=== PATIENT | female | born 1995 | race Caucasian/White ===

== ENCOUNTER → 2022-10-15 08:59 | Outpatient (CLI) | payer OTHER, SELFPAY ==
[2022-10-15 10:16] LABS: Add Manual Diff / Slide Review NO; Basophils Absolute Auto 0 /uL (0-100); Basophils Percent Auto 0.2 % (0-2); Eosinophils Absolute Auto 100 /uL (0-450); Eosinophils Percent Auto 1.4 % (2-4); Hematocrit 36.3 % (36-46); Hemoglobin 12.7 g/dL (12.0-16.0); Lymphocytes Absolute Auto 1200 /uL (1100-4500); Lymphocytes Percent Auto 17.8 % (25-40); Mean Corpuscular HGB Conc 35.1 % (30-36); Mean Corpuscular Hemoglobin 31.5 PG (26-34); Mean Corpuscular Volume 89.9 fL (80-100); Monocytes Absolute Auto 500 /uL (0-900); Monocytes Percent Auto 8.1 % (3-14); Neutrophils Absolute Auto 4700 /uL (1500-7000); Neutrophils Percent Auto 72.5 % (50-75); Platelet Count 239 X10^3/uL (150-400); Red Blood Cell Count 4.04 X10^6/uL (4.0-5.2); Red Cell Distribution Width 13.5 % (11.6-14.8); White Blood Cell Count 6.5 X10^3/uL (4.5-11.0)
[2022-10-15 16:14] LABS: Hepatitis B Surface Antigen NEGATIVE s/c (NEGATIVE); Rubella Antibody IgG 64.3 IU/mL (>15)
[2022-10-15 16:23] LABS: HIV 1 & 2 Ab/Ag 4th Gen Combo NEGATIVE (NEGATIVE); Hep C Virus Ab w/Reflex Quant NEGATIVE s/c (NEGATIVE)
[2022-10-16 06:07] LABS: Labcorp Hemoglobin (Hb) A1c 5.4 % (4.8-5.6)
[2022-10-16 07:57] LABS: RPR Screen Non Reactive (Non Reactive)
[2022-10-16 10:13] LABS: Varicella IgG Antibody 1931 index (Immune >165)
== END ==
PROVIDERS: Specialist; Referring Provider Obstetrics & Gynecology; Visit Provider Obstetrics & Gynecology
DX: Z34.81 Encounter for supervision of other normal pregnancy, first trimester (principal)
CPT/HCPCS: 36415; 80055; 83036; 86787; 86803; 86850; 86900; 86901; 87389

== ENCOUNTER → 2022-12-01 06:48 | Outpatient (CLI) | payer OTHER, SELFPAY ==
--- NOTE | 2022-12-01 06:49 | DI.US.S_ITS ---
PROCEDURE: US OB >= 14 WEEKS FETUS INDICATIONS: ANATOMY OUTSIDE/PRIOR DATING DATA: Last menstrual period (LMP): July 03, 2022. LMP-based estimated date of delivery (CARY): April 17, 2023. First dating scan (date and location): September 16, 2022. Estimated date of delivery (CARY) from first dating scan: April 10, 2023. TECHNIQUE: Real-time scanning was performed of the fetus, with image documentation and biometric measurements. Endovaginal scanning: Not performed COMPARISON: [facility], , OB >= 14 WEEKS FETUS, 11/12/2022, 16:09. FINDINGS: General: A single living intrauterine gestation is present. Presentation: Vertex. Placenta: Placental position is posterior , without previa. Amniotic fluid index: 10.8 cm, normal range is 5-24 cm. Single deepest vertical pocket is 3.3 cm. heart rate: 147 beats per minute. Maternal cervical canal: 3.9 cm long. Normal lower limit is 2.5 cm. biometrics: Biparietal diameter: 5.1 cm, 21 weeks and 2 days Head circumference: 18.9 cm, 21 weeks and 1 day Abdominal circumference: 15.7 cm, 20 weeks and 5 days Femur length: 3.5 cm, 21 weeks and 0 days Clinically estimated gestational age: 21 weeks and 3 days Composite gestational age from present scan: 21 weeks and 0 days Estimated weight and percentile: 385 g, 20th percentile Anatomic survey: Neuro: Ventricles , cisterna magna , and cerebellum are not well visualized secondary to positioning. Nuchal skin fold: Nuchal region not well visualized. Face: Nose and lips, facial profile are normal. Spine: No evidence for spina bifida. Heart: 4-chambered heart is present, with normal ventricular outflow tracts. Diaphragm: Diaphragm is intact. Stomach: Left-sided stomach is present. Kidneys: No hydronephrosis. Normal is less than 5 mm in 2nd trimester, less than 7 mm in 3rd trimester. Cord: 3-vessel cord has orthotopic insertion. Bladder: Normal in size. Extremities: All 4 extremities identified. IMPRESSION: Single living intrauterine gestation with estimated sonographic gestational age of approximately 21 weeks and 0 days which measures concordantly with clinically estimated gestational age of approximately 21 weeks and 3 days. The intracranial structures and nuchal region were not well visualized secondary to lie during this examination. Otherwise, normal anatomy screening survey. Follow-up imaging recommended for the structures not well visualized on today's examination. We strive to produce accurate, complete, and clear reports of imaging services. To assist us in improving patient care, this report was composed using standard report templates and voice recognition software. Therefore, it may contain abnormal punctuation, insertions and/or omissions. Occasional wrong-word or sound-alike substitutions may occur. Though we review the report and make efforts to correct it, we do recommend that the report be read carefully in proper context to recognize any text inaccuracies. Dictated by: Perez Hernandez M.D. on 12/01/2022 at 10:15 Approved by: Perez Hernandez M.D. on 12/01/2022 at 10:21
== END ==
PROVIDERS: Referring Provider Obstetrics & Gynecology; Visit Provider Obstetrics & Gynecology
DX: Z34.82 Encounter for supervision of other normal pregnancy, second trimester (principal); Z3A.21 21 weeks gestation of pregnancy
CPT/HCPCS: 76811

== ENCOUNTER → 2022-12-04 16:22 | Outpatient (CLI) | payer OTHER, SELFPAY ==
--- NOTE | 2022-12-04 16:23 | DI.US.S_ITS ---
PROCEDURE: US OB FOLLOW UP INDICATIONS: FOLLOW UP ANATOMY OUTSIDE/PRIOR DATING DATA: Last menstrual period (LMP): 07/03/2022 LMP-based estimated date of delivery (CARY): 04/17/2023. First dating scan (date and location): 09/16/2022. Estimated date of delivery (CARY) from first dating scan: 04/10/2023 Working CARY is 04/10/2023. TECHNIQUE: Real-time scanning was performed of the fetus, with image documentation and biometric measurements. COMPARISON: [facility], OB >= 14 WEEKS FETUS, 12/01/2022, 7:05. FINDINGS: General: A single living intrauterine gestation is present. Presentation: Vertex. Placenta: Placental position is posterior , without previa. Amniotic fluid index: 12.2 cm, normal range is 5-24 cm. Single deepest vertical pocket is 3.6 cm. heart rate: 158 beats per minute. Maternal cervical canal: 4.2 cm long. Normal lower limit is 2.5 cm. Clinically estimated gestational age: 21 weeks 6 days Normal appearance of the cerebellum, cisterna magna, nuchal fold, lateral ventricles, and the choroid plexus which were not well seen on prior exam. IMPRESSION: 1. Single living IUP redemonstrated with age estimated 21 weeks 6 days by prior ultrasound. 2. Today's exam demonstrating normal appearance of the cerebellum, cisterna magna, nuchal fold, lateral ventricles, and the choroid plexus which were not well seen on prior exam. We strive to produce accurate, complete, and clear reports of imaging services. To assist us in improving patient care, this report was composed using standard report templates and voice recognition software. Therefore, it may contain abnormal punctuation, insertions and/or omissions. Occasional wrong-word or sound-alike substitutions may occur. Though we review the report and make efforts to correct it, we do recommend that the report be read carefully in proper context to recognize any text inaccuracies. Dictated by: Carlos A NOE Interpreted: Reinaldo Chilel MD on 12/04/2022 at 16:55 Transcribed by: TOM on 12/04/2022 at 16:57 Approved by: Reinaldo Chilel M.D. on 12/05/2022 at 8:23
== END ==
PROVIDERS: Referring Provider Specialist; Visit Provider Specialist
DX: Z34.92 Encounter for supervision of normal pregnancy, unspecified, second trimester (principal); Z3A.21 21 weeks gestation of pregnancy
CPT/HCPCS: 76816

== ENCOUNTER → 2022-12-30 10:55 | Outpatient (CLI) | payer OTHER, SELFPAY ==
[2022-12-30 12:36] LABS: Urine Chlamydia NOT DETECTED; Urine N gonorrhoeae NOT DETECTED
== END ==
PROVIDERS: Obstetrics & Gynecology; Visit Provider Student in an Organized Health Care Education/Training Program
DX: N89.8 Other specified noninflammatory disorders of vagina (principal)
CPT/HCPCS: 87491; 87591

== ENCOUNTER → 2023-01-15 08:28 | Outpatient (CLI) | payer OTHER, SELFPAY ==
[2023-01-15 10:11] LABS: Mean Corpuscular HGB Conc 35.3 % (30-36); Mean Corpuscular Hemoglobin 32.1 PG (26-34); Platelet Count 241 X10^3/uL (150-400); Red Blood Cell Count 4.06 X10^6/uL (4.0-5.2); Red Cell Distribution Width 13.2 % (11.6-14.8); White Blood Cell Count 7.1 X10^3/uL (4.5-11.0)
[2023-01-15 10:42] LABS: GTT (PREG) 1 Hour PP 50gm Dose 159 mg/dL (76-139)
== END ==
PROVIDERS: Referring Provider Student in an Organized Health Care Education/Training Program; Visit Provider Student in an Organized Health Care Education/Training Program
DX: Z34.90 Encounter for supervision of normal pregnancy, unspecified, unspecified trimester (principal); Z3A.22 22 weeks gestation of pregnancy
CPT/HCPCS: 36415; 82950; 85027

== ENCOUNTER → 2023-01-27 06:53 | Outpatient (CLI) | payer OTHER, SELFPAY ==
--- NOTE | 2023-01-27 06:54 | DI.US.S_ITS ---
PROCEDURE: US PERIPH VENOUS LOW EXTREM LT INDICATIONS: LT FOOT/LEG PAIN TECHNIQUE: Real-time imaging, as well as color and pulse Doppler interrogation, were performed of the lower extremity deep veins from the inguinal ligament to the popliteal fossa, with documentation of the visualized calf veins. COMPARISON: None. FINDINGS: The common femoral, femoral, popliteal, and the visualized calf veins are normally compressible, and free of intraluminal thrombus. Color and pulse Doppler demonstrate normal phasic intraluminal flow. There is normal augmentation response to distal compression maneuver. IMPRESSION: No findings of left lower extremity deep venous thrombosis. Dictated by: Anderson Boss M.D. on 01/27/2023 at 8:01 Approved by: Anderson Boss M.D. on 01/27/2023 at 8:05
== END ==
PROVIDERS: Referring Provider Obstetrics & Gynecology; Visit Provider Obstetrics & Gynecology
DX: M79.89 Other specified soft tissue disorders (principal); M79.672 Pain in left foot; O99.891 Other specified diseases and conditions complicating pregnancy
CPT/HCPCS: 93971

== ENCOUNTER 2023-02-25 10:20 | Outpatient (CLI) | payer OTHER, SELFPAY | END 2023-02-25 11:08 | disposition home or self-care (01) | LOC: LABOR 10:35 → OB 03-02 06:51 | PROVIDERS: Referring Provider Obstetrics & Gynecology; Visit Provider Obstetrics & Gynecology | DX: O24.415 Gestational diabetes mellitus in pregnancy, controlled by oral hypoglycemic drugs (principal); Z3A.33 33 weeks gestation of pregnancy | CPT/HCPCS: 59025; G0378; G0379 ==

== ENCOUNTER → 2023-03-26 13:31 | Outpatient (CLI) | payer OTHER, SELFPAY ==
[2023-03-28 07:47] LABS: Strep Grp B PCR NEG for Grp B Strep
== END ==
PROVIDERS: PCP Nurse Practitioner Family; Visit Provider Specialist
DX: Z34.83 Encounter for supervision of other normal pregnancy, third trimester (principal); Z3A.37 37 weeks gestation of pregnancy
CPT/HCPCS: 87653

== ENCOUNTER 2023-04-05 05:46 | Inpatient (IN) | payer OTHER, SELFPAY ==
[2023-04-05] VITALS (7 sets, daily range): BP systolic 92–103; BP diastolic 44–68; PULSE 76–98; RESP 14–17; TEMP 36.2; O2SAT 97–100
[2023-04-05 06:42] LABS: Add Manual Diff / Slide Review NO; Basophils Absolute Auto 0 /uL (0-100); Basophils Percent Auto 0.3 % (0-2); Eosinophils Absolute Auto 100 /uL (0-450); Eosinophils Percent Auto 1.6 % (2-4); Hematocrit 39.5 % (36-46); Hemoglobin 13.4 g/dL (12.0-16.0); Lymphocytes Absolute Auto 1300 /uL (1100-4500); Lymphocytes Percent Auto 16.6 % (25-40); Mean Corpuscular Hemoglobin 31.4 PG (26-34); Mean Corpuscular Volume 92.5 fL (80-100); Monocytes Absolute Auto 700 /uL (0-900); Monocytes Percent Auto 8.5 % (3-14); Neutrophils Absolute Auto 5800 /uL (1500-7000); Platelet Count 244 X10^3/uL (150-400); Red Blood Cell Count 4.26 X10^6/uL (4.0-5.2); Red Cell Distribution Width 13.6 % (11.6-14.8)
--- NOTE | 2023-04-05 07:20 | SUR.OPER ---
Supine on Padded OR bed, head on pillow, safety belt at thigh, arms secured on padded arm boards at <90 degrees abduction. Bump under right buttock. Legs uncrossed with pillow under knees, gel pad to heels, tape over blanket to lower legs.
--- NOTE | 2023-04-05 07:20 | PM.PREOP ---
Pre-operative Note Interval Note History & Physical reviewed/Exam performed by Physician: Yes Changes to H&P: No
--- NOTE | 2023-04-05 07:21 | P.HPOB_ITS ---
OB HPI Date/Time Date of admission: 04/05/23 Date Patient Seen: 04/05/23 Time Patient Seen: 07:21 History of Present Condition Chief complaint: Repeat : 2 Para: 1 Estimated Date of Delivery: 04/10/23 Estimated Gestational Age (weeks): 39 Narrative: Tracey So is a 28 year old female admitted for repeat section Indications Operative indications ( section): previous uterine surgery History of Present care: good care, initiated at week # (10), number of visits (11) and pounds weight gain (28) Dating criteria: based on 1st trimester US only Ultrasounds: normal mid trimester US Obstetrical complications: gestational diabetes (On metformin initially now diet control) Medical complications: neurological (POTS) Preadmission Labs Blood type: A (+) positive -: Antibody screen: negative, GBS status: negative, HBsAG: negative, HIV: negative and RPR/VDLR: negative -: Chlamydia screen: not detected and Gonorrhea screen: not detected -: Rubella: immune and Varicella: immune HCAB: negative Cell-free DNA: Normal male 1 hr GTT: 159 Prior (ies) History: 04/13/21 39.5 48 8 lb 11 oz MaleC-sectionlive - full term [place], [place] 4 months gestational diabetes otherJulien Evaluation Evaluation Baseline heart rate: 125 Variability: Moderate (11-25) monitor accelerations: Present Monitor Decelerations: Absent Contraction Frequency (minutes): 0 PFSH Medical History (Updated 02/11/23 @ 22:58 by Johana Fang MD) Allergies Migraines (~2019) Headache (~2019) Scoliosis (~2009) Vertigo (~2019) Recurrent sinusitis Heavy menstrual period (~2021) Gestational diabetes Seasonal allergies GERD (gastroesophageal reflux disease) H. pylori infection Surgical History (Updated 09/16/22 @ 15:09 by Johana Fang MD) Anesthesia Previous section (~2021) History of tonsillectomy and adenoidectomy (~2011) [place] teeth extracted (~2019) Hx of cholecystectomy (~01/2020) Family History (Updated 09/15/22 @ 22:16 by Indu Rudd) Mother Diabetes mellitus Hyperlipidemia Hypertension Anxiety Hyponatremia Mental health problem Stroke Father Rheumatoid arthritis Arrhythmia Kidney stones Hyperlipidemia Brother Schizophrenia Grandmother Lung cancer Grandfather Heart attack Grandfather Diabetes mellitus Heart attack Stroke Grandmother Stroke Social History marital status: number of children: 1 household members: spouse and children lives independently: Yes caregiver/support person: Yes housing: house pets and animals: Yes (2 cats, aware of toxo precautions) education level: college (bachelor's degree) occupational status: unemployed current occupational exposures/hazards: No special radha needs: No travel history: recurrent (Will be travelling domestically only) seatbelt use: always water heater temp set < 120 deg: Yes working smoke detector in home: Yes carbon monox detector in home: Yes firearms in home: Yes firearms unloaded and locked: Yes do you feel safe at home: Yes Smoking Status: Never smoker second hand exposure: No alcohol intake: former substance use type: does not use during the past year weight has: other (back to pre-baby wt (son is 16 months old)) well-balanced diet: rarely or never daily servings fruits/ve-1 caffeine: Yes (occasional soft drink) Type(s) of exercise: walking Meds Home Medications and Allergies Home Medications Medication Instructions Recorded Confirmed Type calcium carbonate 300 mg (750 mg) 300 mg PO QID PRN dyspepsia 08/27/22 03/26/23 History chewable tablet (Tums) cetirizine 10 mg tablet (Zyrtec) 10 mg PO DAILY PRN 08/27/22 03/26/23 History prenat.vits,nestor,kqi-njjq-vdcqu 1 tab PO DAILY 08/27/22 03/26/23 History blood sugar diagnostic (Blood #120 ea 09/22/22 03/26/23 Rx Glucose Test strips) blood-glucose meter (Blood Glucose #1 ea 09/22/22 03/26/23 Rx Monitoring kit) lancets #120 ea 09/22/22 03/26/23 Rx metoclopramide HCl 5 mg tablet 5 mg PO .q6 hour #20 tabs 11/12/22 03/26/23 Rx (Reglan) breast pump #1 ea 02/04/23 03/26/23 Rx metformin 500 mg tablet 500 mg PO DAILY #30 tabs 02/04/23 03/26/23 Rx Allergies Allergy/AdvReac Type Severity Reaction Status Date / Time codeine Allergy Severe Swelling Verified 03/26/23 13:28 of Lip/Tongue/Throat Penicillins Allergy Severe Anaphylaxis Verified 03/26/23 13:28 [place] And Derivatives Allergy Mild ITCHING Verified 03/26/23 13:28 iodine AdvReac Severe Hypertensio Verified 03/26/23 13:28 n gluten AdvReac Mild Diarrhea Verified 03/26/23 13:28 tegaderm Allergy Rash Uncoded 03/26/23 13:28 Review of Systems Review of Systems Narrative: Patient denies headaches, scotomata, epigastric pain. Good movement. No contractions. No vaginal bleeding. No leakage of fluid. OB Exam Vital signs Blood Pressure: 92/61 Pulse Rate: 98 Narrative Exam Narrative: HEENT: Within normal limits. Lungs are clear to auscultation percussion. Heart is regular rate and rhythm no S3-S4 or murmurs. Abdomen is gravid. Fetus is vertex. Extremities without edema and nontender. Objective Labs 04/05/23 06:30 Labs: Laboratory Results - last 24 hr 04/05/23 06:30 WBC 8.0 RBC 4.26 Hgb 13.4 Hct 39.5 MCV 92.5 MCH 31.4 MCHC 34.0 RDW 13.6 Plt Count 244 Neut % (Auto) 73.0 Lymph % (Auto) 16.6 L [place] % (Auto) 8.5 Eos % (Auto) 1.6 L Baso % (Auto) 0.3 Neut # (Auto) 5800 Lymph # (Auto) 1300 [place] # (Auto) 700 Eos # (Auto) 100 Baso # (Auto) 0 Blood Type A Positive Antibody Screen Negative Assessment and Plan Assessment and Plan Assessment and Plan narrative: 39 week 2 day gestation for repeat section
[2023-04-05] MEDS: CITRIC ACID/SODIUM CITRATE 15 ML SOLUTION 30 ML PO (07:34)
--- NOTE | 2023-04-05 09:08 | P.OP_ITS ---
Operative Date/Time/Diagnoses Date of procedure: 04/05/23 Time of procedure: 09:08 Pre-op diagnosis: 39 week gestation with prior section Post-op diagnosis: same Procedure & Clinicians Procedure: Repeat low-transverse section Same procedure as scheduled: Yes Indications: 39 week gestation with prior section Surgeon: January Tidwell Student Loan Counselor: Yennifer Jnug Anesthesia Type: Spinal Operative Notes Findings: Normal tubes, ovaries, uterus. Viable male with Apgars of 9 and 9 Closure Type: primary Specimen(s): cord blood Intraoperative meds administered: Duramorph, Ketorolac and Pitocin Applied: Catheter (Coyle) Estimated Blood Loss (mL): 250 Procedure in detail: The patient was brought to the operating room where she underwent for anesthesia. She was placed in a supine position with a left lateral tilt. A Coyle catheter was place. Pulsatile stockings were placed and functional throughout the case. 900 mg of clindamycin were given IV prior to the incision. Warming was in place. The patient was prepped and draped in usual sterile fashion. A low transverse incision was made with a scalpel and the incision was carried down to the fascial layer which was incised transversely with scissors. The recreational assistant did her side of the incision. The midline attachments are superiorly and inferiorly. Some bleeding was controlled Bovie. The rectus muscles were in the midline and the peritoneal incision was made with no damage to internal structures. The peritoneum was incised and superiorly and inferiorly. The incision was stretched with the surgeon and recreational assistant placing traction. Bladder blade was placed and a bladder flap was developed and the bladder held away from the lower uterine segment. An incision was made in the uterus with the scalpel and the incision was extended with stretching. The head was elevated out of the abdomen and with fundal pressure by the recreational assistant the baby was delivered. The infant was bulb suctioned for clear fluid and handed off to the warmer after 1 minute delayed cord clamping. Cord blood was collected. The placenta delivered spontaneously with traction. The uterus was cleaned with clean laps. The [place] rine incision was closed in 2 layers of 0 chromic suture the first a running locking layer the second an imbricating layer. The recreational assistant was helping to expose the incision. The bladder peritoneum was repaired with 2-0 Vicryl suture. The gutters were cleaned of any remaining fluids and ovaries and tubes were observed to be normal. Adequate hemostasis was noted. The perineum was closed with 2-0 Vicryl suture. The fascia layer was closed with 0 Vicryl suture with 2 stitches. The recreational assistant repairing half the incision with helping to retract and expose the incision for the other half. The incision was irrigated and adequate hemostasis noted. The incision was closed with interrupted 3-0 Vicryl sutures and then a subcuticular stitch of 4-0 Vicryl suture. Steri- Strips were placed. The uterus was massaged to remove any clots. The patient went to recovery room in good condition. Counts of instruments and sponges were correct. was present throughout the case to assist with retraction, fundal pressure to deliver the infant, and suturing half the fascia. Complications: none Baby 1: Gender: Male Presentation: vertex Position: Right Occiput Transverse Placental Delivery Description: Expressed Cord Vessel Description: 3 Vessels score (1 min): 9 score (5 min): 9 Post-operative Condition: stable Disposition: other ( Center) Aftercare: routine postop
[2023-04-05] MEDS: ACETAMINOPHEN 325 MG TABLET 650 MG PO ×2 (12:22→19:03)
[2023-04-05] MEDS: KETOROLAC 30 MG/ML VIAL IV ×2 (14:45→23:05)
[2023-04-06] MEDS: ACETAMINOPHEN 325 MG TABLET 650 MG PO ×2 (00:53→09:32)
[2023-04-06] MEDS: KETOROLAC 30 MG/ML VIAL IV (04:49)
--- NOTE | 2023-04-06 05:49 | PM.OBDS.1 ---
Discharge Providers Provider Date of admission: 04/05/23 05:46 Discharge Date: 04/06/23 Primary care physician: SHANELL Clayton Consults: 04/05/23 10:25 Consult to Chief Radiation Therapist Routine Comment: Discharge provider: January Tidwell MD Summary Hospital Course Date Patient Seen: 04/06/23 Time Patient Seen: 05:49 Diagnoses: 39 week gestation with repeat low-transverse section. History of POTS Hospital Course: Patient arrived on Labor and delivery for repeat section at 39 weeks. She had repeat low-transverse section on 04/05/2023. She is urinating post Coyle catheter removal. She is ambulatory. Her pain is under control. Mild lochia. She is passing gas. She is breast-feeding without difficulty. Peripartum Data Infant Delivery Method: Section (Repeat) complications: none [place] 1: Gender: Male Disposition of : home Discharge Diagnosis (1) Delivery by section using transverse incision of lower segment of uterus: Status: Acute (2) POTS (postural orthostatic tachycardia syndrome): Status: Acute Status at Discharge Cognitive/behavioral status at discharge: oriented Functional status at discharge: independent ambulation Overall status at discharge: patient is progressing back to baseline Time Spent with Patient Time attestation: Total time spent providing and/or coordinating discharge services: Time spent: Less than 30 minutes Objective Labs 04/05/23 06:30 Labs: Laboratory Results - last 24 hr 04/05/23 06:30 WBC 8.0 RBC 4.26 Hgb 13.4 Hct 39.5 MCV 92.5 MCH 31.4 MCHC 34.0 RDW 13.6 Plt Count 244 Neut % (Auto) 73.0 Lymph % (Auto) 16.6 L [place] % (Auto) 8.5 Eos % (Auto) 1.6 L Baso % (Auto) 0.3 Neut # (Auto) 5800 Lymph # (Auto) 1300 [place] # (Auto) 700 Eos # (Auto) 100 Baso # (Auto) 0 Blood Type A Positive Antibody Screen Negative Exam Vital Signs (past 8 hours): Blood pressure 102/67, pulse of 83, temperature 98.1? Oxygen Delivery Method Room Air Narrative Exam Narrative: Abdomen is soft, nontender. Uterus is firm, at U, nontender. Dressing is clean, dry, intact. Mild lochia. Extremities without edema and nontender. Discharge Plan Discharge Plan Patient Disposition: Home Discharge orders & Medications Prescriptions: New docusate sodium 100 mg Capsule 100 mg PO DAILY Qty: 20 0RF ibuprofen 600 mg Tablet 600 mg PO Q6H Qty: 20 0RF oxycodone 5 mg Tablet 5 mg PO Q4H PRN (Reason: Pain, Moderate (4-6)) Qty: 20 0RF Continued prenat.vits,nestor,rhr-pptz-nfuls Tablet 1 tab PO DAILY cetirizine [Zyrtec] 10 mg tablet 10 mg PO DAILY PRN (Reason: Allergic Symptoms) calcium carbonate [Tums] 300 mg (750 mg) tablet,chewable 300 mg PO QID PRN (Reason: dyspepsia) (DME) breast pump Device See Rx Instructions .Route Qty: 1 0RF Rx Instructions: Double electric breast pump Discontinued (DME) lancets Misc See Rx Instructions .ROUTE .MEDSUPPLY Qty: 120 3RF Rx Instructions: Test 1x daily fasting blood sugars (DME) Blood Glucose Test Strip See Rx Instructions .ROUTE .MEDSUPPLY Qty: 120 3RF Rx Instructions: Testing 1x daily fasting blood sugars (DME) blood-glucose meter [Blood Glucose Monitoring] Kit See Rx Instructions .ROUTE .MEDSUPPLY Qty: 1 0RF Rx Instructions: Test 1x daily fasting blood sugars metformin 500 mg tablet 500 mg PO DAILY Qty: 30 5RF Rx Instructions: with evening meal metoclopramide HCl [Reglan] 5 mg tablet 5 mg PO .q6 hour Qty: 20 0RF Rx Instructions: administer 30 minutes before meals Follow up/Referrals: Yvette Owens FNP-C [Primary Care Provider] - January Tidwell MD [Physician] - (Follow-up one-week for Aquacel removal) Diet/Activity/Treatments Diet: Regular Activity: Nothing in vagina or lifting over 20 lb for 6 weeks Skin/Wound/Dressing Care Report to your healthcare provider any signs of infection, such as:: chills, fever, increased pain and unusual redness Dressing: Leave dressing on until 1 week postop appointment Visit Report/Discharge Packet Stand Alone Forms: Patient Portal/API Discharge Data Primary Care Provider: Yvette Owens
[2023-04-06] MEDS: PRENATAL VIT,CALC/IRON/FOLIC 1 TABLET 1 TAB PO (09:32)
[2023-04-06] MEDS: DOCUSATE 100 MG CAPSULE PO (09:32)
== END 2023-04-06 09:50 | disposition home or self-care (01) | DRG 788 ==
PROVIDERS: Admitting Provider Specialist; PCP Nurse Practitioner Family; Referring Provider Specialist; Visit Provider Specialist
PROC: 10D00Z1 Extraction of Products of Conception, Low, Open Approach (ICD-10-PCS; CPT 59514; principal; 2023-04-05 07:45)
DX: O34.211 Maternal care for low transverse scar from previous cesarean delivery (principal); G90.A Postural orthostatic tachycardia syndrome [POTS]; O24.420 Gestational diabetes mellitus in childbirth, diet controlled; Z3A.39 39 weeks gestation of pregnancy; Z37.0 Single live birth; Z67.10 Type A blood, Rh positive
CPT/HCPCS: 36415; 59050; 59510; 59514; 85025; 86850; 86900; 86901; J1885; J2274; J2590; J3010

== ENCOUNTER → 2024-12-18 09:17 | Outpatient (CLI) | payer OTHER, SELFPAY ==
--- NOTE | 2024-12-18 09:17 | DI.MRI.S_ITS ---
PROCEDURE: MR HEAD/BRAIN WO CON INDICATIONS: Checking status of cyst on brainstem x5 years TECHNIQUE: Noncontrast axial T1 spin echo, axial T2 fast spin echo, sagittal and axial FLAIR, coronal T2 fast spin echo, axial gradient echo, axial diffusion and ADC through the brain. COMPARISON: None. FINDINGS: Image quality: Excellent. CSF Spaces: Basal cisterns are patent. No extra-axial fluid collections. Ventricles are normal in size and shape. Brain: No intracranial masses or hemorrhage. Samuels/white matter interface is normal. Brainstem appears normal. Diffusion-weighted images demonstrate no acute infarct. No chronic ischemic insults. Normal intravascular flow voids are present. Skull and face: Calvarium has normal marrow signal. Orbits appear normal. Sinuses: Sinuses and mastoids are clear. IMPRESSION: Unremarkable MRI of the brain without evidence of brainstem cyst. Approved by: Jhonny Arzate M.D. on 12/18/2024 at 16:52
== END ==
LOC: MRI 09:17
PROVIDERS: PCP Nurse Practitioner Family; Referring Provider Family Medicine; Visit Provider Family Medicine
DX: R20.2 Paresthesia of skin (principal)
CPT/HCPCS: 70551